=== PATIENT | male | born 1995 | race Caucasian/White ===

== ENCOUNTER 2019-09-15 12:52 | Emergency (ER) | payer OTHER, SELFPAY ==
[2019-09-15 14:28] LABS: Absolute Lymphocytes (CBC) 1.1 K/uL (0.7-4.9); Basophils % 1.2 % (0-1.3); Hematocrit 43.8 % (39.6-49.0); Lymphocytes % 18.8 % (15.3-44.8); MPV 8.8 fL (7.6-11.3); RBC Red Blood Cell Count 5.04 M/uL (4.33-5.43)
[2019-09-15 14:39] LABS: Albumin 4.2 g/dL (3.4-5.0); Bilirubin Direct 0.2 mg/dL (0-0.2); Protein, Total 7.7 g/dL (6.4-8.2)
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
--- NOTE | 2019-09-15 15:07 | EDPHYS ---
Physician Documentation [facility] Name: Regino Ortega Age: 24 yrs Sex: Male : 1995 Arrival Date: 09/15/2019 Time: 12:56 Bed 27 Private MD: ED Physician Trav Savage HPI: 09/14 14:00 This 24 yrs old Male presents to ER via Ambulatory with complaints of Stiff jmm Neck, Bloody Stools, Abdominal Pain, Difficulty Swallowing. 14:02 Onset: The symptoms/episode began/occurred 1 day(s) ago. This is a 24 year old male jmm with no chronic medical conditions that presents to the ED with complaints of generalized body stiffness, difficulty swallowing, abdominal pain with red stools. Patient states he cut his finger on rubar 1 wek prior. . Historical: - Allergies: 15:22 No Known Allergies; ll1 - PMHx: 15:22 None; ll1 - PSHx: 15:22 None; ll1 - Immunization history:: Last tetanus immunization: unknown. - Social history:: Smoking status: Patient denies any tobacco usage or history of. Patient/guardian denies using street drugs. ROS: 14:02 Constitutional: Negative for fever, chills, and weight loss, Cardiovascular: Negative jmm for chest pain, palpitations, and edema, Respiratory: Negative for shortness of breath, cough, wheezing, and pleuritic chest pain. 14:02 ENT: Positive for jaw pain. 14:02 Neck: Positive for stiffness. 14:02 Abdomen/GI: Positive for diarrhea, rectal bleeding. 14:02 All other systems are negative. Exam: 14:02 Constitutional: This is a well developed, well nourished patient who is awake, alert, jmm and in no acute distress. Head/Face: atraumatic. Eyes: EOMI, no conjunctival erythema appreciated ENT: Moist Mucus Membranes Neck: Trachea midline, Supple Chest/axilla: Normal chest wall appearance and motion. Cardiovascular: Regular rate and rhythm. No edema appreciated Respiratory: Normal respirations, no respiratory distress appreciated Abdomen/GI: Non distended, soft Back: Normal ROM Skin: General appearance color normal MS/ Extremity: Moves all extremities, no obvious deformities appreciated, no edema noted to the lower extremities Neuro: Awake and alert, normal gait Psych: Behavior is normal, Mood is normal, Patient is cooperative and pleasant Vital Signs: 13:27 BP 126 / 86; Pulse 65; Resp 18; Temp 98.8; Pulse Ox 98% on R/A; Weight 83.91 kg; Height dm5 6 ft. 6 in. (198.12 cm); Pain 0/10; 15:42 BP 126 / 79; Pulse 50; Resp 16; Temp 98.6; Pulse Ox 98% ; Pain 0/10; ll1 13:27 Body Mass Index 21.38 (83.91 kg, 198.12 cm) dm5 MDM: 13:34 Patient medically screened. anette 15:06 Data reviewed: vital signs, nurses notes. Counseling: I had a detailed discussion with goldie the patient and/or guardian regarding: the historical points, exam findings, and any diagnostic results supporting the discharge/admit diagnosis, lab results, the need for outpatient follow up, to return to the emergency department if symptoms worsen or persist or if there are any questions or concerns that arise at home. 09/14 13:51 Order name: Basic Metabolic Panel; Complete Time: 14:40 [facility] 09/14 13:51 Order name: CBC with Diff; Complete Time: 14:40 [facility] 09/14 13:51 Order name: Creatinine for Radiology; Complete Time: 16:23 [facility] 09/14 13:51 Order name: Hepatic Function; Complete Time: 14:40 [facility] 09/14 13:51 Order name: Lipase; Complete Time: 14:40 [facility] 09/14 13:51 Order name: Urine Drug Screen; Complete Time: 16:23 [facility] 09/14 13:51 Order name: IV Saline Lock; Complete Time: 15:23 [facility] 09/14 13:51 Order name: Labs collected and sent; Complete Time: 15:23 [facility] 09/14 13:51 Order name: Urine Dipstick-Ancillary (obtain specimen); Complete Time: 15:44 [facility] 09/14 14:52 Order name: Urine Dipstick--Ancillary (enter results); Complete Time: 16:23 eb 09/14 15:07 Order name: Occult Blood--Ancillary eb Administered Medications: No medications were administered Disposition: 09/15/19 15:07 Discharged to Home. Impression: Unspecified abdominal pain. - Condition is Stable. - Discharge Instructions: Abdominal Pain, Adult. - Prescriptions for Pepcid 20 mg Oral Tablet - take 1 tablet by ORAL route every 12 hours for 10 days; 20 tablet. - Medication Reconciliation Form, Thank You Letter, Antibiotic Education, Prescription Opioid Use form. - Follow up: Private Physician; When: 2 - 3 days; Reason: Recheck today's complaints, Continuance of care, Re-evaluation by your physician. Addendum: 09/17/2019 07:23 Co-signature as Attending Physician, Trav Savage MD I agree with the assessment and c rocha plan of care. Signatures: Dispatcher [employer] EDTrav Nava MD MD cha Mickail, Joel, PA PA Vaishali Oakley, RN RN ll1 Corrections: (The following items were deleted from the chart) 09/14 15:42 15:07 09/15/2019 15:07 Discharged to Home. Impression: Unspecified abdominal pain. ll1 Condition is Stable. Forms are Medication Reconciliation Form, Thank You Letter, Antibiotic Education, Prescription Opioid Use. Follow up: Private Physician; When: 2 - 3 days; Reason: Recheck today's complaints, Continuance of care, Re-evaluation by your physician. bryce
[2019-09-15 15:08] LABS: Barbiturates NEGATIVE (NEGATIVE); Benzodiazepines NEGATIVE (NEGATIVE); Cocaine NEGATIVE (NEGATIVE); METHAMPHETAM NEGATIVE (NEGATIVE); Methadone NEGATIVE (NEGATIVE); Opiates NEGATIVE (NEGATIVE); Phencyclidine NEGATIVE (NEGATIVE); THC Cannibis POSITIVE (NEGATIVE)
[2019-09-15 15:11] LABS: Urine Blood NEGATIVE (NEG); Urine Glucose NEGATIVE (NEG); Urine Protein 1+ (NEG); Urine Specific Gravity 1.025 (1.005-1.030)
[2019-09-15 15:49] VITALS: O2SAT 98
[2019-09-15 15:51] VITALS: BP 126/79; TEMP 98.6
== END 2019-09-15 15:42 | disposition home or self-care (01) ==
LOC: ER 12:52
DX: R10.9 Unspecified abdominal pain (principal)
CPT/HCPCS: 36415; 80048; 80076; 80307; 81003; 82272; 83690; 85025; 99283

== ENCOUNTER 2020-06-25 23:18 | Emergency (ER) | payer SELFPAY ==
[2020-06-26] MEDS ORDERED: HYDROCODONE/APAP 10/325 TAB ONE (00:25)
[2020-06-26] MEDS ORDERED: TETANUS & DIPHTHERIA TOX,ADULT 0.5 ML VIAL ONE (00:26)
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
[2020-06-26 03:59] VITALS: TEMP 99.1
[2020-06-26 04:02] VITALS: BP 120/67; O2SAT 97
--- NOTE | 2020-06-26 08:30 | RAD REPORT ---
EXAM DESCRIPTION: RAD - Shoulder Left 2 View - 06/26/2020 12:42 am CLINICAL HISTORY: Left shoulder pain FINDINGS: No fracture or dislocation is seen.
--- NOTE | 2020-06-26 08:31 | RAD REPORT ---
EXAM DESCRIPTION: [place] Single View06/26/2020 12:43 am CLINICAL HISTORY: Chest pain COMPARISON: none FINDINGS: The lungs appear clear of acute infiltrate. The heart is normal size IMPRESSION: No acute abnormalities displayed
--- NOTE | 2020-06-26 12:48 | RAD REPORT ---
EXAM DESCRIPTION: CT - Head C Spine Mpr Wo Con - 06/26/2020 6:40 am CLINICAL HISTORY PAIN COMPARISON: None available TECHNIQUE: Axial CT of the head obtained from the skull apex to the skull base without contrast. Axi al CT images of the cervical spine obtained from the skull base through the thoracic inlet. Sagittal and coronal reformatted images available. FINDINGS: CT head: No acute intracranial hemorrhage identified. No mass, mass effect, shift of the midline, abnormal ext ra-axial fluid collection or CT evidence of acute ischemic change identified. The ventricular system is unremarkable. No acute abnormalities of the supratentorial white matter, basal ganglia, cerebell um, or brainstem. Mucosal thickening of the paranasal sinuses. Mastoid air cells are well aerated. No skull fracture id entified. Visualized orbits and globes are unremarkable. Cervical CT: Straightening of the cervical lordosis may be secondary to patient positioning. The atlantoaxial, a tlantodental, and occipitoatlantal intervals are preserved. No fracture identified. Vertebral body height preserved. Prevertebral soft tissues are unremarkable. Intervertebral disc height preserved. Visualized skull base is intact. No fracture of the visualized facial bones. Visualized mastoid air c ells and paranasal sinuses are well aerated. Visualized thyroid is unremarkable. No cervical lymphadenopathy. No pneumothorax in the visualized lung apices. IMPRESSION: 1. No acute intracranial abnormality. 2. No acute fracture or subluxation of the cervical spine. 3. This exam was performed according to our departmental dose-optimization program, which includes automated exposure control, adjustment of the mA and/or kV according to patient size and/or use of it erative reconstruction technique. 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 The interpreting radiologist is fully responsible for the content of the report.
--- NOTE | 2020-06-26 12:50 | RAD REPORT ---
EXAM DESCRIPTION: CT - Shoulder Left Wo Con - 06/26/2020 6:39 am CLINICAL HISTORY: 24 years Male, shoulder pain COMPARISON: None Available. TECHNIQUE: CT of the left shoulder without IV contrast. Evaluation of the soft tissues and vascu lature is suboptimal due to lack of IV contrast. FINDINGS: Soft tissue: No acute abnormality of the visualized left lung. No acute abnormalities of v isualized mediastinal or left chest wall soft tissues. No well-circumscribed fluid collections. Bones: The visualized portions of the spine are intact. Visualized left ribs are intact. Visualized portions of the sternum are intact. The clavicle is intact. The visualized portions of the scapula are intact. The proximal humerus is intact. No glenohumeral dislocation. IMPRESSION: 1. No acute abnormality in the left shoulder identified. If there is concern for interna l derangement MRI would provide additional characterization. This exam was performed according to our departmental dose-optimization program, which includes autom ated exposure control, adjustment of the mA and/or kV according to patient size and/or use of iterati ve reconstruction technique. 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 The interpreting radiologist is fully responsible for the content of the report.
== END 2020-06-26 03:52 | disposition home or self-care (01) ==
LOC: ER 23:18
DX: R51.9 Headache, unspecified (principal); S01.81XA Laceration without foreign body of other part of head, initial encounter; M25.512 Pain in left shoulder; Y04.2XXA Assault by strike against or bumped into by another person, initial encounter; Y93.9 Activity, unspecified; Y92.009 Unspecified place in unspecified non-institutional (private) residence as the place of occurrence of the external cause; Z23 Encounter for immunization; Z88.1 Allergy status to other antibiotic agents; F17.210 Nicotine dependence, cigarettes, uncomplicated
CPT/HCPCS: 70450; 71045; 72125; 73200; 90471; 90714; 99284; G0390